=== PATIENT | female | born 1975 | race Caucasian/White ===

== ENCOUNTER 2016-09-14 21:42 | Emergency (ER) | payer OTHER ==
[~2016-09-14] VITALS: Ht 170.2 cm; Wt 73.0 kg
[~2016-09-14 21:42] MED LIST: FAMV250T PO; LORT5TAB PO; PROZ20CA11 PO; QUET100 PO; QUET25 PO; SERT-132 PO; TRAZ100T4 PO; Z.0.NO CURRENT MEDS
[2016-09-14 21:54] VITALS: BP 144/77; PULSE 55; RESP 16; TEMP 97.7; O2SAT 99
[2016-09-14] MEDS ORDERED: BACT800T5 PO (22:22)
[2016-09-14] MEDS ORDERED: DOXY100C PO (22:22)
[2016-09-14] MEDS ORDERED: SULFAMETHOXAZOLE-TRIMETHOPRIM DS 800-160 MG TAB PO ONE (22:30)
[2016-09-14] MEDS ORDERED: DOXYCYCLINE HYCLATE 100 MG CAP PO ONE (22:30)
--- NOTE | 2016-09-14 22:31 | PD ---
HPI Chief Complaint: Skin Problem Time Seen by Provider: 22:26 Travel History International Travel<30 days: No Contact w/Intl Traveler<30days: No Traveled to known affect area: No History of Present Illness HPI 40-year-old white female presents to emergency department with complaints of skin infections to her left hip 1 week. She states that these are first noted when she was in [place]. She was told that there were insect bites. They have become increasingly painful, red and swollen. There are draining pus now. She has had an abscess in her right axilla in the past. She admits to subjective fever and chills, and general malaise. She has had no ear pain, sore throat, cough, congestion, nausea, vomiting, abdominal pain or urine symptoms. PFSH Past Medical History Anxiety: Yes Depression: Yes Cardiovascular Problems: Yes COPD: Yes Diminished Hearing: No Genitourinary: No Hypertension: Yes Musculoskeletal: No Neurologic: No Psychiatric: Yes Reproductive: No Respiratory: Yes Tetanus Vaccination: > 5 Years Influenza Vaccination: No ?: Not LMP: 2 days ago Past Surgical History Appendectomy: Yes Other Surgery: No Social History Alcohol Use: Yes Tobacco Use: Yes Substance Use: No Allergies-Medications (Allergen,Severity, Reaction): Coded Allergies: No Known Allergies (Verified , 08/18/15) Reported Meds & Prescriptions Reported Meds & Active Scripts Active Bactrim DS (Sulfamethoxazole-Trimethoprim) 800-160 Mg Tab 1 Tab PO BID Doxycycline Hyclate 100 Mg Cap 100 Mg PO BID Desyrel 100 Mg Tab (Trazodone Hcl) 100 Mg Tab 100 Mg PO HS 10 Days Quetiapine Fumarate 100 Mg Tab 100 Mg PO HS 7 Days Quetiapine Fumarate 25 Mg Tab 50 Mg PO BID@09,12 7 Days Prozac (Fluoxetine HCl) 20 Mg Cap 60 Mg PO DAILY 7 Days Lortab 5/500 (Acetaminophen/Hydrocodone Bitart) 5 Mg/500 Mg Tab 1 Tab PO QIDPRN Famvir (Famciclovir) 250 Mg Tab 250 Mg PO BID Reported Sertraline 50 mg (Sertraline HCl) 50 Mg Tab 1 Tab PO HS No Current Meds (Miscellaneous Medication) Misc Review of Systems Except as stated in HPI: all other systems reviewed are Neg Physical Exam Narrative GENERAL: This is a well-nourished, well-developed patient, in no apparent distress. SKIN: Patient has 2 superficial abscesses involving the left lateral proximal 5. The first abscess measures approximately 2 x 2 centimeters. There is a small amount of pus from the wound. The second measures 6 x 6 cm of erythema but there is only a 2 x 3 cm area of induration. The center of the abscess is open and draining. No lymphangitic streaking. There is no fluctuance or pointing. HEAD: Atraumatic. Normocephalic. EYES: PERRL, EOMI, no discharge or injection. No scleral icterus. EARS: Clear NOSE: Nasal turbinates appear normal. THROAT: Mucosa pink and moist. Airway patent. NECK: Trachea midline. supple, moves head freely. LUNGS: Clear to auscultation. CV: Regular in rhythm. ABDOMEN: Soft nontender. EXT: No clubbing cyanosis or edema. Data Data Last Documented VS Vital Signs Date Time Temp Pulse Resp B/P Pulse Ox O2 Delivery O2 Flow Rate FiO2 09/14/16 21:54 97.7 55 16 144/77 99 Orders Sulfamet-Trimeth Ds 800-160 Mg (Bactrim (09/14/16 22:30) Doxycycline (Vibramycin) (09/14/16 22:30) MDM Medical Decision Making Medical Screen Exam Complete: Yes Emergency Medical Condition: Yes Medical Record Reviewed: Yes Differential Diagnosis MDM: High Differential diagnoses: Abscess, folliculitis, cellulitis, lymphangitis, abrasion, contact dermatitis Narrative Course Patient's given Bactrim DS and doxycycline 100 mg by mouth. Patient has 2 open draining superficial abscesses to the left hip. The patient is advised that Bactrim is free of [facility] and she is given a coupon for [facility] for doxycycline. This will be $20. Diagnosis Primary Impression: superficial abscesses left hip Patient Instructions: General Instructions Additional Instructions: Rest. Elevation. keep clean and dry. Warm compresses. Daily wound care with soap, water and Neosporin. Three Advil every 6 hours. Bactrim DS free at [facility]. Doxycycline $20 [address] [facility]. Follow-up with a primary care doctor in 3-5 days. Return to the ER for any problems. Med/Other Pt SpecificInfo: Prescription(s) given, Wound Care Scripts Sulfamethoxazole-Trimethoprim (Bactrim DS)800-160 Mg Tab1 Tab PO BID #20 TAB Prov:Jono Quezada MD 09/14/16 Doxycycline Hyclate 100 Mg [id number] Mg PO BID #20 CAP Prov:Jono Quezada MD 09/14/16 Disposition: 01 DISCHARGE HOME Condition: Stable Franklyn Whitaker Sep 14, 2016 22:31
== END 2016-09-14 22:45 | disposition home or self-care (01) ==
LOC: NEPD 21:42
DX: L02.416 Cutaneous abscess of left lower limb (principal); L02.411 Cutaneous abscess of right axilla; R50.9 Fever, unspecified; R53.81 Other malaise; F41.9 Anxiety disorder, unspecified; F32.9 Major depressive disorder, single episode, unspecified; J44.9 Chronic obstructive pulmonary disease, unspecified; I10 Essential (primary) hypertension; Z79.899 Other long term (current) drug therapy
CPT/HCPCS: 99284